=== PATIENT | male | born 1985 | race African-American/Black ===

== ENCOUNTER 2021-06-04 12:33 | Emergency (ER) | payer OTHER ==
[2021-06-04] MEDS ORDERED: Sodium Chloride 0.9% 10 ML Syringe FLUSH PRN (12:43)
--- NOTE | 2021-06-04 12:55 | EDM.PDOC ---
<JacquiGisell - Last Filed: 06/04/21 13:02> ED HPI GENERAL MEDICAL PROBLEM - General Chief Complaint: Chemical Exposure Stated Complaint: CHEMICAL INHALATION Time Seen by Provider: 06/04/21 12:42 Source of Information: Reports: Patient History Limitations: Reports: No Limitations - History of Present Illness INITIAL COMMENTS - FREE TEXT/NARRATIVE: Mr. Clifton Mullen is a pleasant 36-year-old male who presents to the ER for evaluation after chemical inhalation. 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 He was at work for 4 hours when he suddenly began to feel unwell. He had one episode of emesis, feels lightheaded, short of breath and has a "pinching" sensation throughout his chest cavity. He denies headache, cough, cough or loss of conscious. He denies history of asthma. He is a former smoker, and currently vapes nicotine. - Related Data Allergies Allergy/AdvReac Type Severity Reaction Status Date / Time No Known Allergies Allergy Verified 04/20/19 06:27 Home Meds: Home Meds . [No Known Home Meds] 06/04/21 [History] Past Medical History - Past Health History Medical/Surgical History: Denies Medical/Surgical History - Infectious Disease History Infectious Disease History: Reports: Novel Coronavirus Social & Family History - Tobacco Use Tobacco Use Status *Q: Current Every Day Tobacco User Years of Tobacco use: 2 Packs/Tins Daily: 1 - Caffeine Use Caffeine Use: Reports: Coffee, Energy Drinks, Soda, Tea ED ROS GENERAL - Review of Systems Review Of Systems: See Below Constitutional: Reports: No Symptoms HEENT: Reports: No Symptoms Respiratory: Reports: Shortness of Breath. Denies: Wheezing, Cough Cardiovascular: Reports: No Symptoms Endocrine: Reports: No Symptoms GI/Abdominal: Reports: No Symptoms : Reports: No Symptoms Musculoskeletal: Reports: No Symptoms Skin: Reports: No Symptoms Neurological: Reports: No Symptoms Psychiatric: Reports: No Symptoms Hematologic/Lymphatic: Reports: No Symptoms Immunologic: Reports: No Symptoms ED EXAM, BURN/SMOKE INHALATION - Physical Exam Exam: See Below Exam Limited By: No Limitations General Appearance: Alert, No Apparent Distress Mouth/Throat: No Symptoms Reported Head: No Symptoms Neck: No Symptoms Respiratory: No Respiratory Distress, Lungs Clear, Normal Breath Sounds Cardiovascular: Regular Rate, Rhythm, No Edema, No JVD GI/Abdominal: Normal Bowel Sounds Neurological: Alert, Oriented, Normal Cognition, No Motor/Sensory Deficits Psychiatric: Normal Affect, Normal Mood Skin Exam: Warm, Dry, Intact, Normal Color Lymphatic: No Adenopathy Course - Re-Assessments/Exams Free Text/Narrative Re-Assessment/Exam: 06/04/21 13:02 Initial orders include IV placement, CBC, CMP, ABG and carboxyhemoglobin. Departure - Departure Disposition: Home, Self-Care 01 Clinical Impression: Inhalation of noxious fumes Qualifiers: Encounter type: initial encounter Injury intent: accidental or unintentional Qualified Code(s): T59.91XA - Toxic effect of unspecified gases, fumes and vapors, accidental (unintentional), initial encounter - Discharge Information Instructions: Chemical Inhalation Injury, Adult Referrals: PCP,None [Primary Care Provider] - Forms: ED Department Discharge Additional Instructions: Go home and rest for the rest of the day. You may resume normal activity tomorrow. Avoid exposure to high concentrations of fumes in the future. Return to ER for any new or worsening symptoms of concern. <Judy Lewis - Last Filed: 06/04/21 23:08> #1 Interpretation EKG Date: 06/04/21 Time: 13:48 Rhythm: NSR Rate (Beats/Min): 62 Hill: Normal P-Wave: Present QRS: Normal ST-T: Normal QT: Normal Course - Vital Signs Last Recorded V/S: Last Vital Signs Temp 97.1 F 06/04/21 12:50 Pulse 65 06/04/21 13:35 Resp 20 06/04/21 12:50 BP 135/97 H 06/04/21 13:03 Pulse Ox 100 06/04/21 13:35 - Orders/Labs/Meds Orders: Active Orders 24 hr Category Date Time Status Peripheral IV Insertion Adult [OM.PC] Stat Oth 06/04/21 12:43 Ordered Labs: Laboratory Tests 06/04/21 06/04/21 06/04/21 Range/Units 12:43 12:58 12:58 WBC 4.59 (4.23-9.07) K/mm3 RBC 4.97 (4.63-6.08) M/mm3 Hgb 15.0 (13.7-17.5) gm/dl Hct 43.7 (40.1-51.0) % MCV 87.9 (79.0-92.2) fl MCH 30.2 (25.7-32.2) pg MCHC 34.3 (32.2-35.5) g/dl RDW Std Deviation 40.5 (35.1-43.9) fL Plt Count 206 (163-337) K/mm3 MPV 9.7 (9.4-12.3) fl Neut % (Auto) 50.3 (34.0-67.9) % Lymph % (Auto) 42.7 (21.8-53.1) % Treasure % (Auto) 5.9 (5.3-12.2) % Eos % (Auto) 0.7 L (0.8-7.0) Baso % (Auto) 0.4 (0.1-1.2) % Neut # (Auto) 2.31 (1.78-5.38) K/mm3 Lymph # (Auto) 1.96 (1.32-3.57) K/mm3 Treasure # (Auto) 0.27 L (0.30-0.82) K/mm3 Eos # (Auto) 0.03 L (0.04-0.54) K/mm3 Baso # (Auto) 0.02 (0.01-0.08) K/mm3 Puncture Site Lt radial ABG pH 7.37 (7.35-7.45) ABG pCO2 43.8 (35.0-45.0) mmHg ABG pO2 45.0 L (80.0-100.0) mmHg ABG HCO3 24.8 (22.0-26.0) meq/L ABG O2 Saturation 75.8 L (96.0-97.0) % ABG Base Excess -0.2 (-2-2.0) ABG Carboxyhemoglobin 1.5 (0.00-1.50) %THgb Martín Test Positive O2 Delivery Device Room air Oxygen Flow Rate 0.0 Sodium 139 (136-145) mEq/L Potassium 3.7 (3.5-5.1) mEq/L Chloride 103 (98-107) mEq/L Carbon Dioxide 27 (21-32) mEq/L Anion Gap 12.7 (5-15) BUN 14 (7-18) mg/dL Creatinine 1.1 (0.7-1.3) mg/dL Est Cr Clr Drug Dosing 90.68 mL/min Estimated GFR (MDRD) > 60 (>60) mL/min BUN/Creatinine Ratio 12.7 L (14-18) Glucose 88 (70-99) mg/dL Calcium 8.9 (8.5-10.1) mg/dL Total Bilirubin 1.6 H (0.2-1.0) mg/dL AST 26 (15-37) U/L ALT 33 (16-63) U/L Alkaline Phosphatase 79 (46-116) U/L Total Protein 7.6 (6.4-8.2) g/dl Albumin 4.0 (3.4-5.0) g/dl Globulin 3.6 gm/dL Albumin/Globulin Ratio 1.1 (1-2) Meds: Medications Discontinued Medications Generic Name Dose Route Start Last Admin Trade Name Freq PRN Reason Stop Dose Admin Sodium Chloride 10 ml 06/04/21 12:43 Sodium Chloride 0.9% 10 Ml Syringe FLUSH ASDIRECTED PRN Keep Vein Open - Re-Assessments/Exams Free Text/Narrative Re-Assessment/Exam: I have reviewed the HPI and exam as documented by RIC Jameson student and agree with her documentation. Pt reports to me that his symptoms have improved significantly since he removed himself from the fumes. He denies feeling SOB at this time but states he feels a little dizzy if he closes his eyes. ABG and carboxyhemogloben were completed prior to pt being on oxygen. Pt was placed on 4L/NC after the draw, pending results. The results showed PO2 low at 45 and O2 saturation low at 75.8 with a normal carboxyhemoglobin, normal pH, normal PCO2. Patient's oxygen saturation was 98% on room air prior to supplemental O2 and given his normal carboxyhemoglobin, this should be an accurate reading and the ABG results do not correlate. Results discussed with respiratory therapist, Ning. She reports that the PO2 and O2 saturations are erroneous as she believes she got a mixture of arterial and venous blood. O2 was turned down to 1L/NC. I have added a 2V chest xray and EKG. 06/04/21 14:08 Hematology is unremarkable. EKG shows normal sinus rhythm at 63 with no abnormalities. Chest x-ray is clear. Patient is feeling well. Oxygen saturations 98% on room air. We will discharge him home with recommendation of the rest for the rest of the day and avoid exposure to fumes in the future. He is in agreement with this plan. Discharge instructions as document. Departure - Departure Time of Disposition: 14:08 Condition: Good - Discharge Information *PRESCRIPTION DRUG MONITORING PROGRAM REVIEWED*: No *COPY OF PRESCRIPTION DRUG MONITORING REPORT IN PATIENT EULALIA: No Sepsis Event Note (ED) - Focused Exam Vital Signs: Vital Signs Temp Pulse Resp BP Pulse Ox 06/04/21 13:35 65 100 06/04/21 13:03 63 135/97 H 100 06/04/21 12:50 97.1 F 70 20 143/96 H 98 - My Orders Last 24 Hours: My Active Orders 06/04/21 12:43 Peripheral IV Insertion Adult [OM.PC] Stat - Assessment/Plan Last 24 Hours: My Active Orders 06/04/21 12:43 Peripheral IV Insertion Adult [OM.PC] Stat
--- NOTE | 2021-06-04 14:17 | CR ---
EXAM: XR CHEST 2 VIEWS LOCATION: [facility] [place] DATE/TIME: 06/04/2021 1:23 PM INDICATION: Short of breath COMPARISON: None. IMPRESSION: Heart is normal in size. Lungs are clear. SIGNED BY: Tj Jones MD 06/04/2021 2:47 PM ANNIKA
== END 2021-06-04 14:32 | disposition home or self-care (01) ==
LOC: JD.ED 12:33
DX: T59.91XA Toxic effect of unspecified gases, fumes and vapors, accidental (unintentional), initial encounter (principal); Z72.0 Tobacco use; Z86.16 Personal history of COVID-19
CPT/HCPCS: 36415; 36600; 71046; 71046-26; 80053; 82375; 82803; 85025; 93005; 99284-25